=== PATIENT | male | born 1980 | race Caucasian/White ===

== ENCOUNTER 2020-12-13 12:21 | Emergency (ER) | payer OTHER ==
[2020-12-13] MEDS ORDERED: Acetaminophen/oxyCODONE 325-5 MG Tab PO ONE (13:01)
[2020-12-13] MEDS ORDERED: ceFAZolin 1 GM in Premix Bag 1 BAG IV ONE ×2 (13:02→13:15)
[2020-12-13] MEDS ORDERED: Diphtheria,Pertussis(Acell),Tetanus Vaccine 0.5 ML Syringe IM ONE (13:02)
--- NOTE | 2020-12-13 13:05 | EDM.PDOC ---
ED HPI GENERAL MEDICAL PROBLEM - General Chief Complaint: Laceration Stated Complaint: CUT LT POINTER FINGER Time Seen by Provider: 12/13/20 13:03 Source of Information: Reports: Patient History Limitations: Reports: No Limitations - History of Present Illness INITIAL COMMENTS - FREE TEXT/NARRATIVE: pt had a laeration on a piece of tin. He is not able to move the pointer finger on the left. Onset: Sudden Duration: Hour(s): Location: Reports: Upper Extremity, Left Associated Symptoms: Reports: No Other Symptoms - Related Data Allergies Allergy/AdvReac Type Severity Reaction Status Date / Time No Known Allergies Allergy Verified 12/13/20 12:41 Home Meds: Home Meds NK [No Known Home Meds] 12/13/20 [History] Past Medical History Musculoskeletal History: Reports: Fracture - Past Surgical History GI Surgical History: Reports: Appendectomy, Hernia, Inguinal, Hernia Repair/Other Social & Family History - Tobacco Use Tobacco Use Status *Q: Current Every Day Tobacco User Years of Tobacco use: 20 Packs/Tins Daily: 0.5 - Caffeine Use Caffeine Use: Reports: Coffee - Recreational Drug Use Recreational Drug Use: No ED ROS GENERAL - Review of Systems Review Of Systems: See Below Musculoskeletal: Reports: Other (cut on the oneil of the left pointer finger and he is not able to move the finger) ED EXAM, SKIN/RASH Exam: See Below Text/Narrative:: pt has a laceration of the left pointer finger . He is not able to move the finger and has a tendon laceration Exam Limited By: No Limitations General Appearance: Alert, Anxious Extremities: Other (tendon laceration of the left pointer finger. He is not able to move the finger. ) Neurological: Alert, Oriented, Normal Cognition Course - Vital Signs Last Recorded V/S: Last Vital Signs Temp 36.3 C 12/13/20 12:42 Pulse 87 12/13/20 12:42 Resp 20 12/13/20 12:42 BP 144/73 H 12/13/20 12:42 Pulse Ox 96 12/13/20 12:42 - Orders/Labs/Meds Orders: Active Orders 24 hr Category Date Time Status Vaccines to be Administered [RC] PER UNIT ROUTINE Care 12/13/20 13:02 Active Meds: Medications Discontinued Medications Generic Name Dose Route Start Last Admin Trade Name Freq PRN Reason Stop Dose Admin Diphtheria/Tetanus/Acell Pertussis 0.5 ml 12/13/20 13:02 12/13/20 13:19 Boostrix IM 12/13/20 13:03 0.5 ml .ONCE ONE Administration Cefazolin Sodium/Dextrose 1 gm 50 mls @ 100 mls/hr 12/13/20 13:15 12/13/20 13:28 / Premix IV 12/13/20 13:44 100 mls/hr ONETIME ONE Administration Oxycodone/Acetaminophen 1 tab 12/13/20 13:01 12/13/20 13:17 Percocet 325-5 Mg PO 12/13/20 13:02 1 tab ONETIME ONE Administration - Re-Assessments/Exams Free Text/Narrative Re-Assessment/Exam: 12/13/20 14:07 Dr Green was consulted and he came and saw the pt. He did sew it up but reccommended a hand surgeon do the tendon repair. pt was given a tetanus booster and he was given ancef 1 gm iv. Departure - Departure Time of Disposition: 14:09 Disposition: Home, Self-Care 01 Condition: Fair Clinical Impression: Flexor tendon laceration of finger with open wound - Discharge Information Referrals: PCP,None [Primary Care Provider] - Forms: ED Department Discharge Care Plan Goals: follow direction of Dr Green, app[facility] [place] [facility] Seps[facility] Event Note (ED) - Evaluation Sepsis Screening Result: No Definite Risk - Focused Exam Vital Signs: Vital Signs Temp Pulse Resp BP Pulse Ox 12/13/20 12:42 36.3 C 87 20 144/73 H 96 - My Orders Last 24 Hours: My Active Orders 12/13/20 13:02 Vaccines to be Administered [RC] PER UNIT ROUTINE - Assessment/Plan Last 24 Hours: My Active Orders 12/13/20 13:02 Vaccines to be Administered [RC] PER UNIT ROUTINE
== END 2020-12-13 14:41 | disposition home or self-care (01) ==
LOC: JP.ED 12:21
DX: S56.122A Laceration of flexor muscle, fascia and tendon of left index finger at forearm level, initial encounter (principal); Z72.0 Tobacco use; Z23 Encounter for immunization; W26.8XXA Contact with other sharp object(s), not elsewhere classified, initial encounter
CPT/HCPCS: 90471; 90715; 96365; 99282-25; 99283; A9270-GY; J0690